=== PATIENT | male | born 1950 | race Caucasian/White ===

== ENCOUNTER 2017-07-23 17:09 | Emergency (ER) | payer OTHER ==
[2017-07-23 17:18] VITALS: BP 144/74; PULSE 83; TEMP 99.4; BMI 29.9
[2017-07-23] MEDS ORDERED: COLCHICINE 0.6 MG TABLET (FP) PO ONE (18:42)
--- NOTE | 2017-07-23 18:51 | PDOC ---
History of Present Illness - General Chief Complaint: Pain Stated Complaint: PAIN Time Seen by Provider: 07/23/17 18:25 - History of Present Illness Initial Comments: 07/23/17 18:43 CHIEF COMPLAINT: gout attack HISTORY OF PRESENT ILLNESS: 67 yo M with hx of gout, HTN, HLD presents to fast track with right great toe pain and swelling now spreading to foot. Patient reports this feels "exactly" like his past flares but he was discontinued from allopurinol a year ago after 2 years of treatment. PAST MEDICAL HISTORY: as per HPI FAMILY HISTORY: Denies SOCIAL HISTORY: Denies tobacco, alcohol, illicit drug use. SURGICAL HISTORY: Denies ALLERGIES: No known drug allergies REVIEW OF SYSTEMS General/Constitutional: Denies fever or chills. Denies weakness, weight change. HEENT: Denies change in vision. Denies ear pain or discharge. Denies sore throat. Cardiovascular: Denies chest pain or shortness of breath. Respiratory: Denies cough, wheezing, or hemoptysis. Gastrointestinal: Denies nausea, vomiting, diarrhea or constipation. Denies rectal bleeding. Genitourinary: Denies dysuria, frequency, or change in urination. Musculoskeletal: R great toe pain radiating to rest of foot. Denies joint or muscle swelling or pain. Denies neck or back pain. Skin and breasts: Denies rash or easy bruising. Neurologic: Denies headache, vertigo, loss of consciousness, or loss of sensation. PHYSICAL EXAM General Appearance: Well-appearing, appropriately dressed. No apparent distress. HEENT: EOMI, PERRLA, normal ENT inspection, normal voice, TMs normal, pharynx normal. No conjunctival pallor. No photophobia, scleral icterus. Respiratory/Chest: Lungs CTAB. Cardiovascular: RRR. S1, S2. Vascular Pulses: Dorsalis-Pedis (R): 2+, Dorsalis-Pedis (L): 2+ Gastrointestinal/Abdominal: Normal bowel sounds. Abdomen soft, non-distended. No tenderness or rebound tenderness. No organomegaly, pulsatile mass, guarding , hernia, hepatomegaly, splenomegaly. Musculoskeletal/Extremities: Swelling to R foot with erythema to R great toe. FROM of all extremities, normal capillary refill. Pelvis Stable. No CVA tenderness. No tenderness, swelling, erythema or deformity to other extremities. Integumentary: Appropriate color, dry, warm. 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 Fully oriented, alert. Appropriate mood/affect. Motor strength 5/5. No appreciable EOM palsy, facial droop or sensory deficit. Past History - Past Medical History Allergies/Adverse Reactions: Allergies Allergy/AdvReac Type Severity Reaction Status Date / Time No Known Allergies Allergy Verified 07/23/17 17:18 Home Medications: Ambulatory Orders Atenolol [Tenormin -] 25 mg PO DAILY 06/18/14 Losartan Potassium [Cozaar] 100 mg PO DAILY 06/18/14 Colchicine 0.6 mg PO DAILY #10 capsule 07/23/17 Colchicine 0.6 mg PO DAILY #20 capsule 07/23/17 Anemia: No Asthma: No Cancer: No Cardiac Disorders: No CVA: No COPD: No CHF: No Dementia: No Diabetes: No GI Disorders: No Disorders: No HTN: Yes Hypercholesterolemia: Yes Kidney Stones: Yes Liver Disease: No Seizures: No Thyroid Disease: No Other medical history: GOUT - Surgical History Abdominal Surgery: No Appendectomy: No Cardiac Surgery: No Cholecystectomy: No Lung Surgery: No Neurologic Surgery: No Orthopedic Surgery: No - Suicide/Smoking/Psychosocial Hx Smoking History: Never smoked Have you smoked in the past 12 months: No If you are a former smoker, when did you quit?: 1.5 YEARS AGO Information on smoking cessation initiated: No Hx Alcohol Use: No Drug/Substance Use Hx: No Substance Use Type: None Hx Substance Use Treatment: No *Physical Exam - Vital Signs Last Vital Signs Temp Pulse Resp BP Pulse Ox 99.4 F 83 18 144/74 95 07/23/17 17:13 07/23/17 17:13 07/23/17 17:13 07/23/17 17:13 07/23/17 17:13 Medical Decision Making - Medical Decision Making 07/23/17 18:51 67 yo M with hx of gout, HTN, HLD presents to fast track with right great toe pain and swelling now spreading to foot. -colchicine po *DC/Admit/Observation/Transfer Diagnosis at time of Disposition: Gout attack Qualifiers: Gout site: foot Gout etiology: unspecified cause Laterality: right Qualified Code(s): M10.9 - Gout, unspecified - Discharge Dispostion Disposition: HOME Condition at time of disposition: Stable Admit: No - Prescriptions Prescriptions: Colchicine 0.6 mg PO DAILY #10 capsule Colchicine 0.6 mg PO DAILY #20 capsule - Referrals Referrals: Jane Brooks MD [Primary Care Provider] - - Patient Instructions Printed Discharge Instructions: DI for Gout Additional Instructions: Please start taking the medication tonight, followed by the medication once daily starting tomorrow morning. You must follow up with Dr. Brooks as discussed for further long-term management. If you develop any or worsening symptoms, please return to the ER. Print Language: RADHA - Post Discharge Activity
== END 2017-07-23 19:17 | disposition home or self-care (01) ==
LOC: JERFT 17:09
DX: M10.9 Gout, unspecified (principal); I10 Essential (primary) hypertension; E78.5 Hyperlipidemia, unspecified
CPT/HCPCS: 99281-25